=== PATIENT | female | born 1955 | race African-American/Black ===

== ENCOUNTER 2016-12-03 15:20 | Emergency (ER) | payer BC ==
[~2016-12-03] VITALS: Ht 167.6 cm; Wt 106.6 kg
[2016-12-03] MEDS ORDERED: KEFLEX500 MG PO (16:09)
[2016-12-03 16:56] VITALS: BP 133/93
== END 2016-12-03 16:59 | disposition home or self-care (01) ==
LOC: ER 15:20
DX: S61.012A Laceration without foreign body of left thumb without damage to nail, initial encounter (principal); Z85.3 Personal history of malignant neoplasm of breast; Z85.038 Personal history of other malignant neoplasm of large intestine; W26.0XXA Contact with knife, initial encounter; Y93.89 Activity, other specified; Y92.89 Other specified places as the place of occurrence of the external cause; Y99.8 Other external cause status